=== PATIENT | male | born 1960 | race Caucasian/White ===

== ENCOUNTER → 2016-07-23 | Outpatient (CLI) | payer BC ==
--- NOTE | 2016-07-23 08:09 | MR ---
EXAMINATION TYPE: MR brain wo/w con DATE OF EXAM: 07/23/2016 7:00 AM COMPARISON: NONE HISTORY: 55-year-old male with 4th cranial nerve palsy right, double vision TECHNIQUE: Multiplanar, multisequence images of the brain and brainstem were acquired before and aft er administration of 20 mL IV MultiHance. Diffusion weighted imaging is performed. FINDINGS: No evidence for acute infarction, hemorrhage, mass, mass effect, midline shift, herniation, effacemen t of basal cisterns, or extra-axial fluid collection. The ventricles and sulci are age-appropriate. Major intracranial flow voids are intact. T2/FLAIR weighted sequences show mild scattered burden of T2 bright white matter change located in th e subcortical, periventricular, and deep white matter of both cerebral hemispheres numbering approxim ately 10 foci on each side. Midline structures demonstrate normal morphology. The craniocervical junction is normal. Post contrast images demonstrate no evidence of pathologic enhancement. Dural venous sinuses are pat ent. There is [id number] mucosal thickening throughout the maxillary and frontal sinuses as well as the ethmoid air cells. IMPRESSION: 1. No acute intracranial abnormality seen. No base of skull mass or abnormal intracranial enhancing l esions. 2. Mild scattered burden of T2 bright white matter change. This is nonspecific but most likely relate s to chronic small vessel ischemic disease. Clinically correlate. 3. [id number] chronic paranasal sinus disease.
== END ==
LOC: RADMRIMAIN 06:12
PROVIDERS: ATTEND Ophthalmology
DX: J32.4 Chronic pansinusitis (principal); H49.11 Fourth [trochlear] nerve palsy, right eye
CPT/HCPCS: 70553; A9577

== ENCOUNTER → 2018-04-25 | Outpatient (CLI) | payer BC ==
--- NOTE | 2018-04-25 15:56 | MR ---
EXAMINATION TYPE: MR brain wo/w con DATE OF EXAM: 04/25/2018 COMPARISON: MRI brain July 23, 2016 HISTORY: Fourth [trochlear] nerve palsy, right eye double vision TECHNIQUE: Multiplanar, multisequence images of the brain and brainstem is performed without and with IV contras t, utilizing 9 mL intravenous Gadavist . FINDINGS: Diffusion weighted images demonstrate no evidence of a recent infarct or other diffusion ab normality. There is no worrisome extra-axial fluid collection. There is mild ventricular and sulcal prominence consistent with mild diffuse age-related cerebral atrophy. There is redemonstration of sca ttered foci of T2 hyperintensity seen throughout the white matter bilaterally. Approximately 10-20 sc attered small lesions are redemonstrated. No significant change from prior MRI is identified. Midline structures demonstrate normal morphology. The craniocervical junction appears within normal limits. Post contrast images demonstrate no abnormal enhancement. [id number] mucosal thickeni ng involving bilateral maxillary sinuses is redemonstrated. The globes are intact bilaterally. IMPRESSION: Mild diffuse cerebral atrophy and nonspecific white matter changes most likely on basis of chronic sm all vessel ischemic change in patient of this age. Persistent mild to moderate chronic maxillary sinu s disease. No significant change from prior study. No suspicious enhancement is noted.
== END | disposition home or self-care (01) ==
LOC: RADMRIMAIN 15:01
PROVIDERS: ATTEND Ophthalmology
DX: G31.1 Senile degeneration of brain, not elsewhere classified (principal); R90.89 Other abnormal findings on diagnostic imaging of central nervous system; H49.11 Fourth [trochlear] nerve palsy, right eye
CPT/HCPCS: 70553; A9585

== ENCOUNTER → 2021-11-28 | Outpatient (CLI) | payer OTHER ==
[2021-11-28 14:39] LABS: Estradiol 19.8 pg/mL; T4, Free (Free Thyroxine) 1.14 ng/dL (0.800-1.800)
[2021-11-28 16:05] LABS: EBV-EA (IgG) 1.6 AI; EBV-EBNA(IgG) 3.9 AI; EBV-VCA (IgG) >8.0 AI; EBV-VCA (IgM) <0.2 AI
== END | disposition home or self-care (01) ==
LOC: LABWHC1 08:34
PROVIDERS: ATTEND General Practice
DX: B00.9 Herpesviral infection, unspecified (principal); B25.9 Cytomegaloviral disease, unspecified; B27.90 Infectious mononucleosis, unspecified without complication; E03.9 Hypothyroidism, unspecified; E34.9 Endocrine disorder, unspecified
CPT/HCPCS: 36415; 82627; 82670; 84140; 84402; 84403; 84439; 84443; 84481; 86644; 86645; 86663; 86664; 86665

== ENCOUNTER → 2022-08-22 | Outpatient (CLI) | payer OTHER ==
[2022-08-22 15:09] LABS: Basophils # (A) 0.05 X 10*3/uL (0.00-0.10); Basophils % (A) 1.1 %; Eosinophils # (A) 0.28 X 10*3/uL (0.04-0.35); Eosinophils % (A) 6.4 %; HCT 46.1 % (39.6-50.0); HGB 15.6 g/dL (13.0-17.0); Immature Grans, Automated 0 %; Lymphocytes # (A) 1.62 X 10*3/uL (0.90-5.00); Lymphocytes % (A) 37.2 %; MCH 30.6 pg (27.0-32.0); MCHC 33.8 g/dL (32.0-37.0); MCV 90.4 fL (80.0-97.0); Mean Platelet Volume 10.8 fL (9.5-12.2); Monocytes # (A) 0.42 X 10*3/uL (0.20-1.00); Monocytes % (A) 9.7 %; NRBC Per 100 WBC 0 /100 WBCS (0.0-0.0); Neutrophils # (A) 1.98 X 10*3/uL (1.80-7.70); Neutrophils % (A) 45.6 %; Platelet Count 246 X 10*3/uL (140-440); RDW 12.8 % (11.5-14.5); WBC 4.35 X 10*3/uL (4.50-10.00)
[2022-08-22 15:30] LABS: T4, Free (Free Thyroxine) 1.05 ng/dL (0.800-1.800)
[2022-08-22 15:49] LABS: Thyroid Peroxidase Antibodies 21.2 U/mL (0.0-33.0)
[2022-08-22 20:06] LABS: DHEA Sulfate 87.1 ug/dL (34.5-568.9)
== END | disposition home or self-care (01) ==
LOC: LABWHC1 08:26
PROVIDERS: ATTEND General Practice
DX: D50.9 Iron deficiency anemia, unspecified (principal); E03.9 Hypothyroidism, unspecified; E06.9 Thyroiditis, unspecified
CPT/HCPCS: 36415; 82627; 83540; 84140; 84439; 84443; 84481; 85025; 86376; 86800